=== PATIENT | male | born 1945 | race Caucasian/White ===

== ENCOUNTER 2019-12-10 17:16 | Emergency (ER) | payer MEDICARE ==
[~2019-12-10] VITALS: Ht 185.4 cm; Wt 59.0 kg
[~2019-12-10 17:16] MED LIST: IBUP600 PO; Keflex500 MG PO
== END 2019-12-10 19:13 | disposition home or self-care (01) ==
LOC: ER 17:16
DX: S01.111A Laceration without foreign body of right eyelid and periocular area, initial encounter (principal); F03.90 Unspecified dementia, unspecified severity, without behavioral disturbance, psychotic disturbance, mood disturbance, and anxiety; Z87.891 Personal history of nicotine dependence; W05.0XXA Fall from non-moving wheelchair, initial encounter
CPT/HCPCS: 12013; 99283